=== PATIENT | male | born 1950 | race Caucasian/White ===

== ENCOUNTER 2023-11-03 13:06 | Outpatient (OUT) | payer MEDICARE, SELFPAY ==
[2023-11-03 13:38] LABS: Basophils Percent Auto 0.4 % (0.2-2.0); Eosinophils Absolute Auto 0.1 10^3/uL (0.0-0.7); Eosinophils Percent Auto 1.2 % (0.9-7.0); Hemoglobin 18.8 g/dL (14.0-18.0); Immature Granulocytes Abs Auto 0.01 10^3/uL (0.00-0.03); Immature Granulocytes Pct Auto 0.2 % (0.0-0.5); Lymphocytes Percent Auto 40.9 % (20.5-60.0); Mean Corpuscular HGB Conc 34.8 g/dL (29.9-35.2); Mean Corpuscular Hemoglobin 33.3 pg (25.9-34.0); Mean Corpuscular Volume 95.7 fL (80.0-94.0); Mean Platelet Volume 9.6 fL (9.5-13.5); Monocytes Absolute Auto 0.4 10^3/uL (0.3-0.8); Monocytes Percent Auto 8.7 % (1.7-12.0); Neutrophils Absolute Auto 2.4 10^3/uL (1.4-6.5); Neutrophils Percent Auto 48.6 % (43.0-75.0); Platelet Count 121 10^3/uL (150-450); Red Blood Count 5.64 10^6/uL (4.70-6.10); Red Cell Distribution Width 11.9 % (11.0-15.0)
[2023-11-03 14:30] LABS: Alanine Aminotransferase 35 U/L (16-63); Albumin Globulin Ratio 0.9; Albumin Level 3.2 g/dL (3.4-5.0); Alkaline Phosphatase 89 U/L (46-116); Anion Gap 12.7; Aspartate Amino Transferase 22 U/L (15-37); BUN Creatinine Ratio 7.3; Bilirubin Total 0.6 mg/dL (0.2-1.0); Calcium 8.8 mg/dL (8.5-10.1); Chloride 101 mmol/L (98-107); Estimated GFR (African America >60 (>=60); Estimated GFR (Non-African Ame >60 (>=60); Globulin 3.7 g/dL; Glucose 161 mg/dL (74-106); Potassium 3.7 mmol/L (3.5-5.1); Sodium 140 mmol/L (136-145); Thyroid Stimulating Hormone 0.099 uIU/mL (0.358-3.740); Total Protein 6.9 g/dL (6.4-8.2)
[2023-11-03 14:33] LABS: Prostate Specific Antigen Dx 7.62 ng/mL (<=4.00)
== END 2023-11-03 13:07 | disposition home or self-care (01) ==
LOC: LAB 13:11
PROVIDERS: PCP Family Medicine; Visit Provider Family Medicine
DX: E03.9 Hypothyroidism, unspecified (principal); I10 Essential (primary) hypertension; N40.0 Benign prostatic hyperplasia without lower urinary tract symptoms; E06.3 Autoimmune thyroiditis; Z86.19 Personal history of other infectious and parasitic diseases
CPT/HCPCS: 36415; 80053; 84153; 84436; 84443; 85025

== ENCOUNTER 2024-05-05 15:20 | Outpatient (OUT) | payer MEDICARE, SELFPAY ==
[2024-05-05 15:48] LABS: Basophils Percent Auto 0.7 % (0.2-2.0); Eosinophils Absolute Auto 0.1 10^3/uL (0.0-0.7); Eosinophils Percent Auto 2.2 % (0.9-7.0); Hematocrit 56.5 % (42.0-54.0); Hemoglobin 20.1 g/dL (14.0-18.0); Lymphocytes Absolute Auto 1.8 10^3/uL (1.2-3.8); Lymphocytes Percent Auto 39.7 % (20.5-60.0); Mean Corpuscular HGB Conc 35.6 g/dL (29.9-35.2); Mean Corpuscular Hemoglobin 33.8 pg (25.9-34.0); Mean Platelet Volume 9.5 fL (9.5-13.5); Monocytes Absolute Auto 0.5 10^3/uL (0.3-0.8); Monocytes Percent Auto 11.2 % (1.7-12.0); Neutrophils Absolute Auto 2.1 10^3/uL (1.4-6.5); Neutrophils Percent Auto 46.2 % (43.0-75.0); Platelet Count 123 10^3/uL (150-450); Red Blood Count 5.95 10^6/uL (4.70-6.10); Red Cell Distribution Width 12.5 % (11.0-15.0); White Blood Count 4.6 10^3/uL (4.0-11.0)
[2024-05-05 16:15] LABS: Alanine Aminotransferase 49 U/L (16-63); Albumin Globulin Ratio 0.9; Albumin Level 3.3 g/dL (3.4-5.0); Alkaline Phosphatase 90 U/L (46-116); Anion Gap 5.1; Aspartate Amino Transferase 26 U/L (15-37); BUN Creatinine Ratio 6.5; Bilirubin Total 0.6 mg/dL (0.2-1.0); Calcium 9.2 mg/dL (8.5-10.1); Carbon Dioxide 32.7 mmol/L (21.0-32.0); Chloride 100 mmol/L (98-107); Estimated GFR (African America >60 (>=60); Estimated GFR (Non-African Ame >60 (>=60); Globulin 3.6 g/dL; Glucose 114 mg/dL (74-106); Potassium 3.8 mmol/L (3.5-5.1); Sodium 134 mmol/L (136-145); Thyroid Stimulating Hormone 0.508 uIU/mL (0.358-3.740); Total Protein 6.9 g/dL (6.4-8.2)
[2024-05-05 16:21] LABS: Prostate Specific Antigen Scrn 6.59 ng/mL (<=4.00)
== END 2024-05-05 15:21 | disposition home or self-care (01) ==
LOC: LAB 15:21
PROVIDERS: PCP Family Medicine; Visit Provider Family Medicine
DX: D64.9 Anemia, unspecified (principal); E06.3 Autoimmune thyroiditis; Z86.711 Personal history of pulmonary embolism; N40.0 Benign prostatic hyperplasia without lower urinary tract symptoms; I10 Essential (primary) hypertension
CPT/HCPCS: 36415; 80053; 84436; 84443; 85025; G0103

== ENCOUNTER 2025-05-09 07:50 | Outpatient (OUT) | payer MEDICARE, SELFPAY ==
--- OUTSIDE RECORDS SUMMARY | 2025-05-04 09:44 | XMS_ITS ---
Author Name Auto Generated Organization OHIP Care Team Providers Care Belt Splicer Name Role Phone RAMÓN SALAZAR Primary Care Unavailable HOUSE, DO RAMÓN Baker Attending Unavailable HOUSE, DO RAMÓN Baker Attending Unavailable HOUSE, RAMÓN Baker Primary Care Unavailable HOUSE, DO RAMÓN Baker Attending Unavailable HOUSE, RAMÓN Baker Primary Care Unavailable PROBLEMS DATE TYPE CONDITION / CODE ATTENDING STATUS [facility] 05/04/2025 Final Diagnosis (Discharge) Encounter for screening for malignant neoplasm of prostate / Z12.5(ICD-10) DO RAMÓN SALAZAR [facility] 05/04/2025 Final Diagnosis (Discharge) Elevated prostate specific antigen [PSA] / R97.20(ICD-10) DO RAMÓN SALAZAR [facility] 05/04/2025 Final Diagnosis (Discharge) Autoimmune thyroiditis / E06.3(ICD-10) DO RAMÓN SALAZAR [facility] 05/04/2025 Final Diagnosis (Discharge) Benign prostatic hyperplasia without lower urinary tract symptoms / N40.0(ICD-10) DO RAMÓN SALAZAR [facility] 05/04/2025 Final Diagnosis (Discharge) Anemia, unspecified / D64.9(ICD-10) DO RAMÓN SALAZAR [facility] 05/04/2025 Final Diagnosis (Discharge) Personal history of pulmonary embolism / Z86.711(ICD-10) DO MARIE RAMÓN Samuel [facility] 05/04/2025 Final Diagnosis (Discharge) Essential (primary) hypertension / I10(ICD-10) DO MARIE [facility] 05/04/2025 Final Diagnosis (Discharge) Hypothyroidism, unspecified / E03.9(ICD-10) DO MARIE RAMÓN Samuel [facility] PROCEDURES No Procedure Records Found RESULTS MEDICATION MANAGEMENT Observed: 10/13/19 10:09 AM Status: F Source: [facility] Entered by RAMÓN SALAZAR DO on October 12, 2024 10:09:55 EST From: RAMÓN SALAZAR DO [facility]: [facility] [id number] Sent: 10/12/2024 10:09:55 EST Subject: Medication Management Submitted: Complete:levothyroxine (levothyroxine 200 mcg (0.2 mg) oral tablet) Signed by RAMÓN SALAZAR DO 10/12/2024 10:09:00 EST Submitted: Complete:atenolol (atenolol 25 mg oral tablet) Signed by RAMÓN SALAZAR DO 10/12/2024 10:09:00 EST Submitted: Complete:folic acid (folic acid 1 mg oral tablet) Signed by RAMÓN SALAZAR DO 10/12/2024 10:09:00 EST Submitted: Complete:tamsulosin (tamsulosin 0.4 mg oral capsule) Signed by RAMÓN SALAZAR DO 10/12/2024 10:09:00 EST Approved with modifications: tamsulosin (TAMSULOSIN HYDROCHLORIDE 0.4MG CAPSULE) TAKE ONE CAPSULE BY MOUTH TWICE A DAY Qty: 60 EA Days Supply: 30 Refills: 5 Substitutions Allowed Route To Pharmacy - [facility] Approved with modifications: folic acid (FOLIC ACID 1MG TABLET) TAKE ONE TABLET BY MOUTH DAILY Qty: 30 EA Days Supply: 30 Refills: 5 Substitutions Allowed Route To Pharmacy - [facility] Approved with modifications: atenolol (ATENOLOL 25MG TABLET) TAKE ONE TABLET BY MOUTH DAILY Qty: 30 EA Days Supply: 30 Refills: 5 Substitutions Allowed Route To Pharmacy - [facility] Approved with modifications: levothyroxine (LEVOTHYROXINE SODIUM 200MCG TABLET) TAKE ONE TABLET BY MOUTH DAILY Qty: 30 EA Days Supply: 30 Refills: 5 Substitutions Allowed Route To [facility] From: [facility] To: RAMÓN SLAAZAR Samuel Sent: October 12, 2024 9:04:48 AM CUSTOMER SERVICE CASHIER Subject: Medication Management Due: October 13, 2024 12:13:10 AM CUSTOMER SERVICE CASHIER On Hold Pending Signature Drug: tamsulosin (tamsulosin 0.4 mg oral capsule), TAKE ONE CAPSULE BY MOUTH TWICE A DAY Quantity: 60 EA Days Supply: 30 Refills: 4 Substitutions Allowed Notes from Pharmacy: Dispensed Drug: tamsulosin (tamsulosin 0.4 mg oral capsule), TAKE ONE CAPSULE BY MOUTH TWICE A DAY Quantity: 60 EA Days Supply: 30 Refills: 5 Substitutions Allowed Notes from Pharmacy: On Hold Pending Signature Drug: folic acid (folic acid 1 mg oral tablet), TAKE ONE TABLET BY MOUTH DAILY Quantity: 30 EA Days Supply: 30 Refills: 4 Substitutions Allowed Notes from Pharmacy: Dispensed Drug: folic acid (folic acid 1 mg oral tablet), TAKE ONE TABLET BY MOUTH DAILY Quantity: 30 EA Days Supply: 30 Refills: 5 Substitutions Allowed Notes from Pharmacy: On Hold Pending Signature Drug: atenolol (atenolol 25 mg oral tablet), TAKE ONE TABLET BY MOUTH DAILY Quantity: 30 EA Days Supply: 30 Refills: 4 Substitutions Allowed Notes from Pharmacy: Dispensed Drug: atenolol (atenolol 25 mg oral tablet), TAKE ONE TABLET BY MOUTH DAILY Quantity: 30 EA Days Supply: 30 Refills: 5 Substitutions Allowed Notes from Pharmacy: On Hold Pending Signature Drug: levothyroxine (levothyroxine 200 mcg (0.2 mg) oral tablet), TAKE ONE TABLET BY MOUTH DAILY Quantity: 30 EA Days Supply: 30 Refills: 4 Substitutions Allowed Notes from Pharmacy: Dispensed Drug: levothyroxine (levothyroxine 200 mcg (0.2 mg) oral tablet), TAKE ONE TABLET BY MOUTH DAILY Quantity: 30 EA Days Supply: 30 Refills: 5 Substitutions Allowed Notes from Pharmacy: ALLERGIES DATE TYPE / CODE NAME / CODE REACTION SEVERITY SOURCE Drug/[id number](SNOMED CT) No known allergies [facility] ENCOUNTERS ADMIT/DISCHARGE ACCOUNT NUMBER ADMITTING ENCOUNTER CLASS LOC ATION SOURCE 05/04/2025/ 5 [id number] [facility] Room 2 [facility] 11/03/[id number] [facility]/03/2023/ [id number] [facility] PAYERS ENCOUNTER GUARANTOR PAYER SUBSCRIBER SOURCE 05/04/2025 LELAND SCHAEFFER: [id number] [address] [address]Npw: () Primary Insurance:MEDICAR EPolic Number: [id number] bogdan Date:5039-33-30Ya an Name:MedicarePO [address] [address], [place] [address]TO: LELAND SCHAEFFER: [id number] [address] [address]Qlq: () [facility] 11/03/2024 LELAND SCHAEFFER: [id number] [address] [address]Qrf: () Primary Insurance:MEDICAL EPolic Number: [id number] bogdan Date:2835-22-35Kv an Name:Med[address]arePO [address] [address] [address]YD: LELAND SCHAEFFER: [id number] N COUNT INCLUDES THE [facility] [address], [place] [address]Thx: () [facility] 11/03/2023 LELAND SCHAEFFER: [id number] N COUNT INCLUDES THE [id number], [place] [address]Baf: () Primary Insurance:MEDICAR EPolicy Number: [id number] bogdan Date:1683-29-61Dw an Name:MedicarePO [address] [address] [address]NI: LELAND SCHAEFFER: [id number] N [facility] [id number], [place] [address]Aqh: () [facility]
[2025-05-09 08:16] LABS: Hematocrit 59.0 % (42.0-54.0); Hemoglobin 21.3 g/dL (14.0-18.0); Immature Granulocytes Abs Auto 0.00 10^3/uL (0.00-0.03); Immature Granulocytes Pct Auto 0.0 % (0.0-0.5); Lymphocytes Absolute Auto 1.5 10^3/uL (1.2-3.8); Mean Corpuscular HGB Conc 36.1 g/dL (29.9-35.2); Mean Corpuscular Hemoglobin 33.9 pg (25.9-34.0); Mean Corpuscular Volume 93.8 fL (80.0-94.0); Platelet Count 132 10^3/uL (150-450); Red Blood Count 6.29 10^6/uL (4.70-6.10); White Blood Count 4.1 10^3/uL (4.0-11.0)
[2025-05-09 09:00] LABS: Alanine Aminotransferase 43 U/L (16-63); Albumin Globulin Ratio 0.9; Albumin Level 3.4 g/dL (3.4-5.0); Alkaline Phosphatase 77 U/L (46-116); Anion Gap 10.4; Aspartate Amino Transferase 21 U/L (15-37); Blood Urea Nitrogen 4.0 mg/dL (7.0-18.0); Calcium 9.2 mg/dL (8.5-10.1); Carbon Dioxide 30.9 mmol/L (21.0-32.0); Chloride 101 mmol/L (98-107); Cholesterol 194 mg/dL (<=200); Estimated GFR (African America >60 (>=60 mL/min/1.73m^2); Estimated GFR (Non-African Ame >60 (>=60 mL/min/1.73m^2); Globulin 3.8 g/dL; Glucose 111 mg/dL (74-106); HDL Cholesterol 30 mg/dL (40-60); Potassium 4.3 mmol/L (3.5-5.1); Sodium 138 mmol/L (136-145); Thyroid Stimulating Hormone 0.063 uIU/mL (0.358-3.740); Total Protein 7.2 g/dL (6.4-8.2); Triglycerides 192 mg/dL (<=150); VLDL CHOLESTEROL 38.4 mg/dL
== END 2025-05-09 07:51 | disposition home or self-care (01) ==
LOC: LAB 07:50
PROVIDERS: PCP Family Medicine; Visit Provider Family Medicine
DX: D64.9 Anemia, unspecified (principal); Z86.711 Personal history of pulmonary embolism; I10 Essential (primary) hypertension; E03.9 Hypothyroidism, unspecified; N40.0 Benign prostatic hyperplasia without lower urinary tract symptoms; R97.20 Elevated prostate specific antigen [PSA]; Z12.5 Encounter for screening for malignant neoplasm of prostate
CPT/HCPCS: 36415; 80053; 80061; 84436; 84443; 85025; G0103